=== PATIENT | female | born 1980 | race African-American/Black ===

== ENCOUNTER → 2017-03-16 | Outpatient (CLI) | payer OTHER ==
[~2017-03-16] MED LIST: BACTRIM DS TABL1 TA1 PO; BENTYL10 MG PO; CIPRO PO; CLEOCIN HCL300 M1 PO; DICLOFENAC PO; ERYTHROMYCIN O3.5 GM OD; FAMOTIDINE PO; FLEXERIL10 M1 PO; FLEXERIL10 MG PO; HCTZ PO; IRON325 ( 65 ) PO; KEFLEX PO; LASIX PO; LORTAB 2.5/5001 TAB PO; MEDROL4 MG/DOSE- PO; METROGEL-VAGINA70 GM VG; NAPROSYN500 MG PO; NO MEDICATIONS; PHENERGAN PO; PHENERGAN25 MG PO; PREDNISONE PO; SKELAXIN PO; VICODIN 5/1 TAB 5/50 PO; VICODIN 5/500 T1 TAB PO
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
--- NOTE | ~2017-03-16 | CR186 ---
[facility] A Service of [facility] & [facility] RADIOLOGY TEXT RESULTS PATIENT: JENNIFER CABRAL LOCATION: [facility] : 78 UNIT #: [id number] AGE: [address]: MARIE BANERJEE PA-C SEX: F ORDER DR: [id number] [facility] [address] [place], [place] [address] [id number] O MR#: [id number] Acc #: [id number] NAME: JENNIFER CABRAL : 1980 SEX: F STUDY DATE/TIME: 03/17/2017 0:07 UNIT: [facility] ROOM: STUDY DESCRIPTION: CR Lumbar Spine W Bend Min 6 V Attending Physician: Marie Banerjee Pa-C Ordering Physician: Marie Banerjee Pa-C Primary Care Physician: Gene Pena M.D. MEDICAL IMAGING REPORT This report is preliminary unless electronic signature is present EXAM Lumbar spine 5 views including lateral flexion and extension views 03/17/2017 HISTORY Back pain since July 2016. FINDINGS Normal alignment other than very slight scoliosis. Radiographically very slight discogenic change. No abnormal motion in flexion or extension. IMPRESSION Very slight discogenic change with no abnormal motion, normal alignment. Dictated by... Alex Tafoya M.D. THIS IS AN ELECTRONICALLY VERIFIED REPORT Alex Tafoya M.D. at 03/18/2017 3:56 PM ARNOLD/ramon TD: 03/18/2017 08:47 JOB #: [id number] MEDICAL IMAGING REPORT Page 1 of 1 COPY
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
== END | disposition home or self-care (01) ==
LOC: CRAD 23:38
DX: M25.551 Pain in right hip (principal); M51.36 Other intervertebral disc degeneration, lumbar region; M50.30 Other cervical disc degeneration, unspecified cervical region
CPT/HCPCS: 72052; 72114; 73502